=== PATIENT | female | born 1995 | race Caucasian/White ===

== ENCOUNTER 2019-04-22 03:40 | Emergency (ER) | payer OTHER ==
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
[2019-04-22 04:06] VITALS: BP 109/72; PULSE 91; TEMP 98.3; BMI 27.7
[2019-04-22] MEDS ORDERED: ACETAMINOPHEN 1000 MG/100 ML VIAL (NON FORMULARY) IVPB ONE (04:22)
[2019-04-22] MEDS ORDERED: ACETAMINOPHEN 325 MG TABLET (FP) PO ONE (04:28)
[2019-04-22] MEDS ORDERED: ACETAMINOPHEN 325 MG TABLET (FP) ONE (04:36)
== END 2019-04-22 08:22 | disposition home or self-care (01) ==
LOC: JER 03:40
PROC: 3E033NZ Introduction of Analgesics, Hypnotics, Sedatives into Peripheral Vein, Percutaneous Approach (ICD-10-PCS; principal; 2019-04-22)
PROC: BY4CZZZ Ultrasonography of Second Trimester, Single Fetus (ICD-10-PCS; 2019-04-22)
DX: O99.89 Other specified diseases and conditions complicating pregnancy, childbirth and the puerperium (principal); S09.8XXA Other specified injuries of head, initial encounter; G44.319 Acute post-traumatic headache, not intractable; Y04.2XXA Assault by strike against or bumped into by another person, initial encounter; Y93.89 Activity, other specified; Y92.89 Other specified places as the place of occurrence of the external cause; Y99.8 Other external cause status; Y07.03 Male partner, perpetrator of maltreatment and neglect; Z3A.16 16 weeks gestation of pregnancy
CPT/HCPCS: 76801-TC; 96374; 99282-25